=== PATIENT | female | born 1950 | race Hispanic/Latino ===

== ENCOUNTER 2016-12-06 10:13 | Outpatient (CLI) | payer MEDICARE ==
--- NOTE | 2016-12-06 11:54 | Mammography Report ---
BILATERAL DIGITAL SCREENING MAMMOGRAM with CAD: 12/06/16 10:13:00 CLINICAL: Routine screening. COMPARISON:None available. FINDINGS: The breasts are heterogeneously dense, which may obscure small masses. No mass, architectural distortion or suspicious calcifications. IMPRESSION: No mammographic evidence of malignancy. BI-RADS CATEGORY: 1 - - Negative RECOMMENDATION: Routine mammographic screening in one year. COMMENT: Patient follow-up letters are generated by our [employer] application. The
== END 2016-12-06 10:14 | disposition home or self-care (01) ==
LOC: SPVWC 10:13
DX: Z12.31 Encounter for screening mammogram for malignant neoplasm of breast (principal)
CPT/HCPCS: 77067; G0202

== ENCOUNTER 2017-01-07 13:24 | Outpatient (CLI) | payer MEDICARE ==
--- NOTE | 2017-01-07 16:16 | XRay Report ---
CHEST TWO VIEWS: 01/07/17 13:24:00 CLINICAL: Cough. COMPARISON: 07/07/15 FINDINGS: Normal heart and pulmonary vasculature. The lungs are normally expanded and clear.Mild osteopenia and exaggerated thoracic kyphosis. No spine fractures. Normal soft tissues. IMPRESSION: No acute cardiopulmonary process.Mild osteopenia and exaggerated thoracic kyphosis.
== END 2017-01-07 13:25 | disposition home or self-care (01) ==
LOC: SPVIMAG 13:24
DX: R05 Cough (principal); M40.294 Other kyphosis, thoracic region; M85.88 Other specified disorders of bone density and structure, other site
CPT/HCPCS: 71020